=== PATIENT | female | born 1980 | race Caucasian/White ===

== ENCOUNTER 2022-12-05 10:13 | Emergency (ER) | payer OTHER ==
[~2022-12-05] VITALS: Ht 167.6 cm; Wt 78.2 kg
[2022-12-05] MEDS ORDERED: MULTTAB20 PO (10:20)
[2022-12-05 12:32] LABS: BASO % 0.3 % (0.0-1.0); EOS # 0.1 10^3/uL (0.0-0.5); EOS % 0.5 % (0.0-3.0); HEMATOCRIT 41.5 % (36.0-47.0); HEMOGLOBIN 14.6 g/dl (12.0-15.5); LYMPH # 1.5 10^3/uL (1.5-5.0); LYMPH % 12.5 % (24.0-44.0); MEAN CORPUSCULAR HEMOGLOBIN 29.3 pg (27.0-33.0); MEAN CORPUSCULAR HGB CONC 35.2 g/dl (32.0-36.5); MEAN CORPUSCULAR VOLUME 83.2 fl (80.0-96.0); MONO # 0.5 10^3/uL (0.0-0.8); MONO % 4.2 % (2.0-8.0); NEUTROPHILS # 10.1 10^3/uL (1.5-8.5); NEUTROPHILS % 82.1 % (36.0-66.0); PLATELET COUNT, AUTOMATED 257 10^3/uL (150-450); RED BLOOD COUNT 4.99 10^6/uL (4.00-5.40); WHITE BLOOD COUNT 12.4 10^3/uL (4.0-10.0)
[2022-12-05] MEDS ORDERED: PHENAZOPYRIDINE 100 MG TAB PO ONE (13:15)
[2022-12-05] MEDS ORDERED: CEPHALEXIN 500 MG CAP PO ONE (13:15)
[2022-12-05] MEDS ORDERED: PYRI1TAB5 PO (13:49)
[2022-12-05] MEDS ORDERED: CEPH500C PO (13:49)
[2022-12-05 13:56] VITALS: BP 132/76; TEMP 99.2; O2SAT 96
[2022-12-06] MEDS ORDERED: HYDR-3713 PO (00:24)
== END 2022-12-05 13:56 | disposition home or self-care (01) ==
LOC: M ED 10:13
DX: O20.0 Threatened abortion (principal); O23.41 Unspecified infection of urinary tract in pregnancy, first trimester; Z3A.08 8 weeks gestation of pregnancy

== ENCOUNTER 2022-12-05 18:22 | Emergency (ER) | payer OTHER ==
[~2022-12-05] VITALS: Ht 167.6 cm; Wt 78.6 kg
[~2022-12-05 18:22] MED LIST: CEPH500C PO; MULTTAB20 PO; PYRI1TAB5 PO
[2022-12-05 20:34] LABS: BASO # 0.1 10^3/uL (0.0-0.2); BASO % 0.4 % (0.0-1.0); EOS # 0.1 10^3/uL (0.0-0.5); HEMOGLOBIN 13.5 g/dl (12.0-15.5); LYMPH # 2.6 10^3/uL (1.5-5.0); MEAN CORPUSCULAR HEMOGLOBIN 28.9 pg (27.0-33.0); MEAN CORPUSCULAR HGB CONC 34.6 g/dl (32.0-36.5); MEAN CORPUSCULAR VOLUME 83.5 fl (80.0-96.0); MONO # 0.8 10^3/uL (0.0-0.8); MONO % 5.8 % (2.0-8.0); NEUTROPHILS # 10.6 10^3/uL (1.5-8.5); NEUTROPHILS % 74.4 % (36.0-66.0); PLATELET COUNT, AUTOMATED 254 10^3/uL (150-450); RED BLOOD COUNT 4.67 10^6/uL (4.00-5.40); WHITE BLOOD COUNT 14.2 10^3/uL (4.0-10.0)
[2022-12-05] MEDS ORDERED: KETOROLAC 30 MG/ML 1ML VIAL IV ONE (21:50)
[2022-12-06] MEDS ORDERED: HYDR-3713 PO (00:24)
[2022-12-06] MEDS ORDERED: ONDANSETRON 4MG 2ML VIAL IV ONE (00:25)
[2022-12-06] MEDS ORDERED: MORPHINE 4 MG/ML 1ML VIAL IV ONE (00:25)
[2022-12-06 00:37] VITALS: BP 114/65; TEMP 97.4; O2SAT 97
== END 2022-12-06 00:50 | disposition home or self-care (01) ==
LOC: M ED 18:22
DX: O03.4 Incomplete spontaneous abortion without complication (principal)
CPT/HCPCS: 84702; 85025; 96374; 96375; 99283; J1885; J2405